=== PATIENT | male | born 2000 | race Caucasian/White ===

== ENCOUNTER → 2021-06-21 11:32 | Outpatient (CLI) | payer OTHER, SELFPAY ==
--- NOTE | ~2021-06-21 | CT_ITS ---
EXAMINATION: CT pelvis w con EXAM DATE: 06/21/2021 11:52 INDICATION: Pelvic and perineal pain. TECHNIQUE: Spiral CT pelvis was performed following intravenous injection of 100 mL Omnipaque 350. Axial, coronal and sagittal images were reviewed. The dose-length product (DLP) for this examination was 350.51 mGy-cm. The exposure was tailored according to patient size (auto mA exposure control), and iterative reconstruction (ASIR) was used as additional dose reduction technique. There is no romi or study for comparison. FINDINGS: Normal appendix. Expected amount of stool. There is trace nonspecific free pelvic fluid. Pr ostate, bladder and perineum are unremarkable. No pelvic or inguinal lymphadenopathy. Inguinal canals unremarkable. IMPRESSION: Trace nonspecific free pelvic fluid. Reviewed, dictated and finalized at location B.
== END ==
PROVIDERS: PCP Internal Medicine; Visit Provider Internal Medicine
DX: R10.2 Pelvic and perineal pain (principal)
CPT/HCPCS: 72193; Q9967

== ENCOUNTER 2024-07-12 18:05 | Emergency (ER) | payer OTHER, SELFPAY ==
--- NOTE | ~2024-07-12 | XR_ITS ---
EXAMINATION: XR chest 2V DATE: 07/12/2024 18:38 INDICATION: Chest pain. Shortness of breath. TECHNIQUE: Frontal and lateral views of the chest were obtained. COMPARISON: None. FINDINGS: There is no pneumonia, pleural effusion, or pneumothorax. The heart size is normal. IMPRESSION: 1. No acute cardiopulmonary disease. Reviewed, dictated and finalized at location A.
[2024-07-12 18:11] VITALS: BP 152/100; PULSE 128; PULSE 130; RESP 16; TEMP 36.2; O2SAT 98
--- NOTE | 2024-07-12 18:12 | ECG_ITS ---
Test Date: 2024-07-12 18:22:08 Measurements Intervals [place] Rate: 104 P: 67 VA: 133 QRS: 49 QRSD: 90 T: 57 QT: 321 QTc: 422 Interpretive Statements SINUS TACHYCARDIA WITH OCCASIONAL VENTRICULAR PREMATURE COMPLEXES ABNORMAL RHYTHM ECG No previous ECG available for comparison Electronically Signed On 07-13-2024 16:16:35 CDT by Vasiliy Vargas M.D.
--- NOTE | 2024-07-12 19:55 | ED.CHESTPAIN ---
HPI - Chest Pain General Chief Complaint: Chest Pain Stated Complaint: chest pain Time Seen by Provider: 07/12/24 19:55 Source: patient and family Mode of arrival: ambulatory Limitations: no limitations History of Present Illness HPI narrative: 24 years old white male came to the emergency room with burning sensation left chest started while sitting watching TV 45 hours ago. He denies aggravating or relieving factors or history of similar symptoms. Patient denies any fever, chills, nausea, vomiting, shortness of breath, headache, back pain or trouble breathing. Patient does vapes, denied marijuana use, drinks alcohol once a week. Patient's that this telling me that patient been using Tums quite a bit of lately possible GERD. Related Data Allergies Allergy/AdvReac Type Severity Reaction Status Date / Time No Known Allergies Allergy Verified 07/12/24 18:09 Review of Systems Review of Systems: All systems reviewed & are unremarkable except as noted in HPI and below Exam Narrative: General appearance: Well-developed, well-nourished, restless, shaking Skin: Normal color Head: Normocephalic, nontraumatic Eyes: Clear conjunctiva ENT: Oropharynx normal, ears normal, nose normal Neck: Supple, nontender Chest and respiratory: Airway patent, no respiratory distress, no accessory muscle use Heart: Regular rate/rhythm Abdomen: Soft, nontender, no organomegaly, quiet bowel sounds Vascular: Normal peripheral pulses, normal capillary refill. Musculoskeletal: Normal range of motion, nontender back Neurologic: Alert and oriented ?3, C[employer] TRANSITIONS NURSE is normal as tested, no gross motor deficit Course Vital Signs Vital signs: Vital Signs Temperature 36.2 C L 07/12/24 18:11 Pulse Rate 130 H 07/12/24 18:11 Respiratory Rate 16 07/12/24 18:11 Blood Pressure 152/100 H 07/12/24 18:11 Pulse Oximetry 98 07/12/24 18:11 Temperature 36.2 C L 07/12/24 18:11 Pulse Rate 128 H 07/12/24 18:11 Respiratory Rate 16 07/12/24 18:11 Blood Pressure 152/100 H 07/12/24 18:11 Pulse Oximetry 98 07/12/24 18:11 MDM - Chest Pain MDM Narrative Medical decision making narrative: Patient presents with left chest pain Vital signs on arrival showed blood pressure 152/100, heart rate of 130 Physical examination showed restless anxious patient. Differential diagnosis anxiety like symptoms, drug induced restlessness, Blood workup today showed WBC of 12.6 high likely secondary to anxiety and stress, otherwise insignificant abnormality EKG showed sinus tachycardia at 10:04 a.m., with occasional PVCs, abnormal EKG Patient's symptoms resolved 100% after 2 mg of Ativan IV and GI cocktail. Discharged on omeprazole the pt was discharged to home.the pt,s condition upon discharge was fair,education was provided to the pt in reference to the final impression,discharge study results,treatment,prognosis and need for follow up . Differential Diagnosis Differential diagnosis: Likely other (As above) Medical Records Data Attestation: I reviewed the patient's medical records. Lab Data Attestation: I reviewed the patient's lab results. Imaging Data Radiologist's impression: Impressions Chest X-Ray 07/12/24 18:44 IMPRESSION: 1. No acute cardiopulmonary disease. ECG Data EKG #1: Attestation: I personally reviewed and interpreted this ECG as follows: ECG completion date: 07/12/24 Interpretation: EKG showed sinus tachy at 104 beats per minute with occasional PVCs, abnormal EKG Critical Care Time Critical Care Time Critical Care Time: No Discharge Plan Discharge Clinical Impression: Atypical chest pain, Anxiety-like sympto
[2024-07-12 20:14] VITALS: BP 142/78; PULSE 98; RESP 18; O2SAT 97
[2024-07-12 20:15] VITALS: O2SAT 97
[2024-07-12 20:18] LABS: Basophils Absolute Auto 0.1 K/mm3 (0.0-0.1); Basophils Percent Auto 0.4 % (0.2-1.2); Eosinophils Percent Auto 0.2 % (0-4.4); Hematocrit 43.6 % (42.0-52.0); Immature Granulocyte Percent A 0.8 % (0-0.5); Lymphocytes Absolute Auto 1.11 K/mm3 (0.9-3.2); Lymphocytes Percent Auto 8.8 % (18.3-44.2); Mean Corpuscular HGB Conc 34.4 g/dl (32-36); Mean Corpuscular Hemoglobin 28.7 pg (26-34); Mean Corpuscular Volume 83.5 fl (80-100); Mean Platelet Volume 8.6 fl (7.4-10.4); Monocytes Absolute Auto 0.6 K/mm3 (0.1-0.6); Neutrophils Absolute Auto 10.7 K/mm3 (1.3-6.7); Neutrophils Percent Auto 84.8 % (45.5-73.1); Platelet Count Result 240 k/mm3 (150-375); Red Blood Count 5.22 M/mm3 (4.6-6.20); Red Cell Distribution Width 13.2 % (11.5-14.5); White Blood Count 12.6 K/mm3 (4.5-10.0)
[2024-07-12] MEDS: BELLADONNA ALK/PHENOB ELIX 10 ML, MAG HYDROX/ALUMINUM HYD/SIMETH 30 ML, LIDOCAINE HCL 2... PO (20:26)
[2024-07-12 20:27] LABS: Alanine Aminotransferase 19 U/L (6-50); Albumin Level 4.6 g/dL (3.5-5.1); Alkaline Phosphatase 62 U/L (38-126); Anion Gap 8 mmol/L (4-12); Aspartate Amino Transferase 28 U/L (17-59); Bilirubin,Total 0.3 mg/dL (0.2-1.3); Blood Urea Nitrogen 15 mg/dL (9-20); Carbon Dioxide 24 mmol/L (22-30); Chloride 109 mmol/L (98-107); Estimated CRCL calculation 119 ml/min; Estimated Glomerular Filt Rate > 60; Glucose 99 mg/dL (65-110); Lipase 94 U/L (23-300); Potassium 4.1 mmol/L (3.4-5.0); Sodium 141 mmol/L (137-145)
[2024-07-12] MEDS: LORazepam INJ (*CRX) 2 MG/ML VIAL IV PUSH (20:27)
[2024-07-12 20:31] LABS: INR 1.1; Partial Thromboplastin Time 27.1 Seconds (22.3-36.8); Prothrombin Time 14.7 Seconds (11.1-14.7)
[2024-07-12 20:38] LABS: Troponin I < 0.012 ng/mL (0.000-0.034)
[2024-07-12 21:10] VITALS: BP 140/78; PULSE 91; RESP 15; O2SAT 97
== END 2024-07-12 21:23 | disposition home or self-care (01) ==
PROVIDERS: Emergency Medicine; Emergency Provider Emergency Medicine; PCP Internal Medicine
DX: R07.89 Other chest pain (principal); K21.9 Gastro-esophageal reflux disease without esophagitis; F41.9 Anxiety disorder, unspecified; R00.0 Tachycardia, unspecified; I49.3 Ventricular premature depolarization
CPT/HCPCS: 36415; 71046; 80053; 83690; 84484; 85025; 85610; 85730; 93005; 96374; 99284; A9270; J2060

== ENCOUNTER 2024-08-27 15:03 | Outpatient (CLI) | payer OTHER, SELFPAY ==
--- NOTE | ~2024-08-27 | CT_ITS ---
EXAMINATION: CT abdomen pelvis wo con DATE: 08/27/2024 15:19 INDICATION: Unspecified abdominal pain. TECHNIQUE: Computed tomography (CT) of the abdomen and pelvis was performed without intravenous contr ast. Automated exposure control and iterative reconstruction technique were employed. The dose-length product was 476.70 mGy-cm. COMPARISON: Pelvis CT 06/21/2021 FINDINGS: The visualized portions of the lung bases are clear without pneumonia or pleural effusion. The heart size is normal. No pericardial effusion. The liver, gallbladder, spleen, pancreas, adrenal glands, and kidneys are normal. There is no urolithiasis. There are no dilated loops of bowel. The ap pendix is normal. There are no pathologically enlarged lymph nodes. There is no free intraperitoneal fluid. There is mild thoracic and lumbar spondylosis. There is mild chronic anterior wedging of multi ple lower thoracic vertebral bodies. IMPRESSION: 1. No etiology for the patient's symptoms. Reviewed, dictated and finalized at location A. [employer]
== END 2024-08-27 15:04 | disposition home or self-care (01) ==
LOC: MICIMG 15:06
PROVIDERS: PCP Internal Medicine; Visit Provider Internal Medicine
DX: R10.9 Unspecified abdominal pain (principal)
CPT/HCPCS: 74176